=== PATIENT | female | born 1990 | race Caucasian/White ===

== ENCOUNTER 2019-02-25 18:15 | Emergency (ER) | payer BC ==
--- NOTE | 2019-02-25 18:36 | EDM.PDOC ---
ED HPI GENERAL MEDICAL PROBLEM - General Chief Complaint: Genitourinary Problem Stated Complaint: PT HAS UTI Time Seen by Provider: 02/25/19 18:16 Source of Information: Reports: Patient History Limitations: Reports: No Limitations - History of Present Illness INITIAL COMMENTS - FREE TEXT/NARRATIVE: HISTORY AND PHYSICAL: History of present illness: Patient is a 28-year-old female who presents to the emergency room with complaints of dysuria and frequency since this afternoon. She is concerned that she has a bladder infection. She states she has been increasing her fluid within the last hour and already feels improvement. Patient denies any fever, chills, headache, change in vision, syncope or near syncope. Denies any abdominal pain, nausea, vomiting, diarrhea, constipation or blood in urine or stool. Denies any vaginal bleeding, discharge, or concerns of STDs. Patient has been eating and drinking appropriately. Review of systems: As per history of present illness and below otherwise all systems reviewed and negative. Past medical history: As per history of present illness and as reviewed below otherwise noncontributory. Surgical history: As per history of present illness and as reviewed below otherwise noncontributory. Social history: See social history for further information Family history: As per history of present illness and as reviewed below otherwise noncontributory. Physical exam: General: Well-developed and well-nourished 28-year-old female. Alert and oriented. Nontoxic appearing and in no acute distress. HEENT: Atraumatic, normocephalic, pupils equal and reactive bilaterally, negative for conjunctival pallor or scleral icterus, mucous membranes moist, trachea midline. No drooling or trismus noted. No meningeal signs. No hot potato voice noted. Lungs: Clear to auscultation, breath sounds equal bilaterally, chest nontender. Heart: S1S2, regular rate and rhythm without overt murmur Abdomen: Soft, nondistended, nontender. Negative for masses. Negative for costovertebral tenderness. Pelvis: Stable nontender. Skin: Intact, warm, dry. No lesions or rashes noted. Extremities: Atraumatic, moves all extremities per self without difficulty or deficits, negative for cords or calf pain. Neurovascular unremarkable. Neuro: Awake, alert, oriented. Cranial nerves II through XII unremarkable. Cerebellum unremarkable. Motor and sensory unremarkable throughout. Exam nonfocal. Notes: Medication and supportive care measures were reviewed and discussed. Voices understanding and is agreeable to plan of care. Denies any further questions or concerns at this time. Diagnostics: UA/UC Therapeutics: None Prescription: Macrobid Pyridium Impression: UTI Plan: 1. Take the medications as directed. 2. Increase your oral fluids. 3. Follow-up with your primary care provider as we discussed. Return to the ED as needed and as discussed. Definitive disposition and diagnosis as appropriate pending reevaluation and review of above. - Related Data Allergies Allergy/AdvReac Type Severity Reaction Status Date / Time ciprofloxacin [From Cipro] Allergy Hives Verified 02/25/19 18:23 Home Meds: Home Meds Control 1 tab PO DAILY 02/25/19 [History] Past Medical History HEENT History: Reports: None Cardiovascular History: Reports: None Respiratory History: Reports: None Gastrointestinal History: Reports: None Genitourinary History: Reports: None QA SOFTWARE TESTER History: Reports: None Neurological History: Reports: None Psychiatric History: Reports: None Endocrine/Metabolic History: Reports: None Hematologic History: Reports: None Immunologic History: Reports: None Oncologic (Cancer) History: Reports: None Dermatologic History: Reports: None - Past Surgical History Head Surgeries/Procedures: Reports: None HEENT Surgical History: Reports: None Cardiovascular Surgical History: Reports: None Respiratory Surgical History: Reports: None GI Surgical History: Reports: None Female Surgical History: Reports: None Endocrine Surgical History: Reports: None Neurological Surgical History: Reports: None Musculoskeletal Surgical History: Reports: Other (See Below) Other Musculoskeletal Surgeries/Procedures:: ACL repair Oncologic Surgical History: Reports: None Dermatological Surgical History: Reports: None Social & Family History - Family History Family Medical History: Noncontributory - Tobacco Use Smoking Status *Q: Never Smoker Second Hand Smoke Exposure: No - Caffeine Use Caffeine Use: Reports: Coffee, Energy Drinks - Recreational Drug Use Recreational Drug Use: No ED ROS GENERAL - Review of Systems Review Of Systems: ROS reveals no pertinent complaints other than HPI. ED EXAM, RENAL/ - Physical Exam Exam: See Below (See dictation) Course - Vital Signs Last Recorded V/S: Last Vital Signs Temp 97.1 F 02/25/19 18:24 Pulse 78 02/25/19 19:14 Resp 18 02/25/19 18:24 BP 124/70 02/25/19 19:14 Pulse Ox 98 02/25/19 19:14 - Orders/Labs/Meds Orders: Active Orders 24 hr Category Date Time Status CULTURE URINE [RM] Stat Lab 02/25/19 18:20 Received Labs: Laboratory Tests 02/25/19 Range/Units 18:20 Urine Color YELLOW Urine Appearance SLT CLOUDY Urine pH 6.5 (5.0-8.0) Ur Specific [place] <= 1.005 (1.001-1.035) Urine Protein TRACE H (NEGATIVE) mg/dL Urine Glucose (UA) NEGATIVE (NEGATIVE) mg/dL Urine Ketones NEGATIVE (NEGATIVE) mg/dL Urine Occult Blood LARGE H (NEGATIVE) Urine Nitrite NEGATIVE (NEGATIVE) Urine Bilirubin NEGATIVE (NEGATIVE) Urine Urobilinogen 0.2 (<2.0) EU/dL Ur Leukocyte Esterase LARGE H (NEGATIVE) Urine RBC 5-8 (0-2/HPF) Urine WBC 40-50 (0-5/HPF) Ur Epithelial Cells FEW (NONE-FEW) Urine Bacteria FEW (NEGATIVE) Departure - Departure Time of Disposition: 19:17 Disposition: Home, Self-Care 01 Clinical Impression: UTI, Urinary tract infectious disease - Discharge Information Instructions: Urinary Tract Infection, Adult, [id number] Referrals: PCP,None [Primary Care Provider] - Forms: ED Department Discharge Additional Instructions: The following information is given to patients seen in the emergency department who are being discharged to home. This information is to outline your options for follow-up care. We provide all patients seen in our emergency department with a follow-up referral. The need for follow-up, as well as the timing and circumstances, are variable depending upon the specifics of your emergency department visit. If you don't have a primary care physician on staff, we will provide you with a referral. We always advise you to contact your personal physician following an emergency department visit to inform them of the circumstance of the visit and for follow-up with them and/or the need for any referrals to a consulting specialist. The emergency department will also refer you to a specialist when appropriate. This referral assures that you have the opportunity for follow-up care with a specialist. All of these measure are taken in an effort to provide you with optimal care, which includes your follow-up. Under all circumstances we always encourage you to contact your private physician who remains a resource for coordinating your care. When calling for follow-up care, please make the office aware that this follow-up is from your recent emergency room visit. If for any reason you are refused follow-up, please contact the [facility] Emergency Department at and asked to speak to the emergency department charge nurse. [facility] [address] [place] [address] [facility] [address] [place] [id number] 1. Take the medications as directed. 2. Increase your oral fluids. 3. Follow-up with your primary care provider as we discussed. Return to the ED as needed and as discussed. - My Orders Last 24 Hours: My Active Orders 02/25/19 18:20 CULTURE URINE [] Stat - Assessment/Plan Last 24 Hours: My Active Orders 02/25/19 18:20 CULTURE URINE [RM] Stat
== END 2019-02-25 19:15 | disposition home or self-care (01) ==
LOC: MW.ED 18:15
DX: N39.0 Urinary tract infection, site not specified (principal); Z88.1 Allergy status to other antibiotic agents; Z79.899 Other long term (current) drug therapy
CPT/HCPCS: 81001; 87086; 87088; 87186; 99283

== ENCOUNTER 2022-06-02 18:11 | Inpatient (IN) | payer BC ==
[2022-06-02] MEDS ORDERED: Terbutaline 1 MG/ML SDV SUBCUT PRN (19:54)
[2022-06-02] MEDS ORDERED: Sodium Chloride 0.9% 20 ML SDV IV PRN (19:54)
[2022-06-02] MEDS ORDERED: Butorphanol 1 MG/ML SDV IVPUSH PRN (19:54)
[2022-06-02] MEDS ORDERED: Misoprostol 25 MCG (1/4 of 100 MCG) Tab VAG PRN ×2 (19:54)
[2022-06-02] MEDS ORDERED: Water For Irrigation,Sterile 1,000 ML Container IRR PRN (19:54)
[2022-06-02] MEDS ORDERED: Sodium Chloride 0.9% 2.5 ML Syringe FLUSH PRN (19:54)
[2022-06-02] MEDS ORDERED: Sodium Chloride 0.9% 10 ML Syringe FLUSH PRN (19:54)
[2022-06-02] MEDS ORDERED: Tranexamic Acid 1,000 MG in Sodium Chloride 0.9% 100 ML IV PRN (19:54)
[2022-06-02] MEDS ORDERED: Carboprost Tromethamine 250 MCG/1 ML Amp IM PRN (19:54)
[2022-06-02] MEDS ORDERED: Misoprostol 200 MCG Tab PO PRN (19:54)
[2022-06-02] MEDS ORDERED: Methylergonovine 0.2 MG/1 ML Amp IM PRN (19:54)
[2022-06-02] MEDS ORDERED: Ampicillin 2 GM in Sodium Chloride 0.9% 100 ML IV ONE (19:54)
[2022-06-02] MEDS ORDERED: Lidocaine 1% 50 ML MDV INJECT PRN (19:54)
[2022-06-02] MEDS ORDERED: Oxytocin/0.9 % Sodium Chloride 30 UNIT/500 ML BAG IV SCH ×2 (20:00)
[2022-06-02] MEDS: Lactated Ringers 1,000 ML IV SCH (21:36)
[2022-06-02] MEDS ORDERED: diphenhydrAMINE 25 MG Cap PO PRN (22:24)
[2022-06-03] MEDS ORDERED: Ropivacaine/PF 400 MG/200 ML PCA ONE (01:17)
[2022-06-03] MEDS ORDERED: ePHEDrine 50 MG/ML SDV IVPUSH PRN (01:36)
[2022-06-03] MEDS ORDERED: Ropivacaine HCl/PF 400 MG in Premix Bag 1 BAG EPIDUR SCH (01:45)
[2022-06-03] MEDS ORDERED: Phenylephrine HCl In 0.9% NaCl 1 MG/10 ML Vial IVPUSH SCH (01:45)
[2022-06-03] MEDS: Ampicillin 1 GM in Sodium Chloride 0.9% 50 ML IV SCH ×3 (01:47→10:06)
[2022-06-03] MEDS: Lactated Ringers 1,000 ML IV SCH ×2 (02:33→09:53)
[2022-06-03] MEDS ORDERED: Bisacodyl 10 MG Supp RECTAL PRN (14:37)
[2022-06-03] MEDS ORDERED: Benzocaine/Menthol 20%-0.5% Spray 78 GM Cannister TOP PRN (14:37)
[2022-06-03] MEDS ORDERED: Lanolin 100% Cream 7 GM Tube TOP PRN (14:37)
[2022-06-03] MEDS ORDERED: Ibuprofen 400 MG Tab PO PRN (14:37)
[2022-06-03] MEDS ORDERED: oxyCODONE 5 MG Tab PO PRN (14:37)
[2022-06-03] MEDS ORDERED: Acetaminophen 500 MG Tab PO PRN ×2 (14:37)
[2022-06-03] MEDS ORDERED: Witch Hazel Medicated Pads 40/Jar TOP PRN (14:37)
[2022-06-04] MEDS: Docusate Sodium 100 MG Cap PO PRN ×2 (04:48→20:05)
[2022-06-04] MEDS ORDERED: Dexmedetomidine 200 MCG/2 ML SDV ONE (08:22)
[2022-06-04] MEDS: Ibuprofen 800 MG Tab PO PRN ×2 (08:32→20:05)
[2022-06-05] MEDS: Docusate Sodium 100 MG Cap PO PRN (08:36)
== END 2022-06-05 14:45 | disposition home or self-care (01) | DRG 560 ==
LOC: MW.OBCHECK 18:11 → MW.OB 18:12 → MW.OBCHECK 19:53 → MW.OB 19:54 → OBSVTOIN 06-03 14:16 → MW.OB 06-03 20:00
PROVIDERS: ADMIT Obstetrics & Gynecology; ATTEND Obstetrics & Gynecology
PROC: 10E0XZZ Delivery of Products of Conception, External Approach (ICD-10-PCS; principal; 2022-06-03)
PROC: 0HQ9XZZ Repair Perineum Skin, External Approach (ICD-10-PCS; 2022-06-03)
PROC: 3E0R3BZ Introduction of Anesthetic Agent into Spinal Canal, Percutaneous Approach (ICD-10-PCS; 2022-06-03)
PROC: 00HU33Z Insertion of Infusion Device into Spinal Canal, Percutaneous Approach (ICD-10-PCS; 2022-06-03)
DX: O60.14X0 Preterm labor third trimester with preterm delivery third trimester, not applicable or unspecified (principal); O99.824 Streptococcus B carrier state complicating childbirth; Z3A.36 36 weeks gestation of pregnancy; Z37.0 Single live birth; O70.0 First degree perineal laceration during delivery; O98.52 Other viral diseases complicating childbirth; B00.9 Herpesviral infection, unspecified; Z20.822 Contact with and (suspected) exposure to COVID-19
CPT/HCPCS: 01967; 36415; 51702; 59025; 59409; 82803; 84112; 85014; 85018; 85027; 86592; 86850; 86900; 86901; A9270-GY; J0290; J2590; J2795; J7120; U0002